=== PATIENT | female | born 1985 | race Caucasian/White ===

== ENCOUNTER 2022-05-29 19:54 | Emergency (ER) | payer MEDICAID ==
[~2022-05-29] VITALS: Ht 152.4 cm; Wt 90.0 kg
[2022-05-29 19:59] VITALS: BP 116/80
--- NOTE | 2022-05-29 20:09 | NUR ---
pt is emotionally, crying, refusing to answer questions and is uncooperative with any examine. Remains in custody with [facility],
== END 2022-05-29 20:14 ==
LOC: ER 19:55
DX: Z00.8 Encounter for other general examination (principal); Z72.89 Other problems related to lifestyle
CPT/HCPCS: 99283